=== PATIENT | male | born 1955 | race Caucasian/White ===

== ENCOUNTER 2022-02-18 14:36 | Emergency (ER) | payer SELFPAY ==
[~2022-02-18] VITALS: Ht 182.9 cm; Wt 122.5 kg
--- NOTE | 2022-02-18 14:45 | NUR ---
DAVIDE RA89 From Home Flu-like symptoms 4d ago fever/chills/dizzy. Hx fall last january. PLACE ON BED, AAOX4, BREATHING EVEN AND UNLABORED, COMPLAINS OF BACK PAIN 8/10 PS.
--- NOTE | 2022-02-18 14:50 | NUR ---
AT BED SIDE
[2022-02-18] MEDS ORDERED: KETOROLAC TROMETHAMINE INJ 30 MG/ML VIAL IM ONE ×2 (15:00→22:00)
--- NOTE | 2022-02-18 15:06 | NUR ---
[facility] FOR COVID19 AND RAPID INFLUENZA ANTIGEN SENT TO LAB
[2022-02-18] MEDS ORDERED: KETOROLAC TROMETHAMINE INJ 30 MG/ML VIAL ONE ×2 (15:20→21:54)
[2022-02-18] MEDS ORDERED: KETO10TA2 PO (19:46)
--- NOTE | 2022-02-18 21:00 | NUR ---
[facility] CALLED FOR TRANSPORT. ETA 90 MINUTES
--- NOTE | 2022-02-18 22:27 | NUR ---
Patient discharged to home in stable condition. Written and verbal after care instructions given. Patient verbalizes understanding of instruction. 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
[2022-02-18 22:28] VITALS: BP 127/80
== END 2022-02-18 22:29 | disposition home or self-care (01) ==
LOC: ER 14:49
DX: B34.9 Viral infection, unspecified (principal); M79.10 Myalgia, unspecified site; Z20.822 Contact with and (suspected) exposure to COVID-19
CPT/HCPCS: C9803; J1885

== ENCOUNTER 2023-10-01 18:42 | Emergency (ER) | payer MEDICARE, BC ==
[~2023-10-01 18:42] MED LIST: KETO10TA2 PO
[2023-10-01 20:40] VITALS: BP 132/88; TEMP 98; O2SAT 98
== END 2023-10-01 20:41 | disposition home or self-care (01) ==
LOC: ER 18:46
DX: S61.012A Laceration without foreign body of left thumb without damage to nail, initial encounter (principal); W26.0XXA Contact with knife, initial encounter; Y93.89 Activity, other specified; Y92.89 Other specified places as the place of occurrence of the external cause; Y99.8 Other external cause status
CPT/HCPCS: 12002; 99282; A6403